=== PATIENT | female | born 2000 | race Two or more races ===

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

== ENCOUNTER → 2019-01-20 | Outpatient (CLI) | payer OTHER ==
--- NOTE | 2019-01-20 10:32 | XR ---
EXAMINATION TYPE: XR chest 2V DATE OF EXAM: 01/20/2019 COMPARISON: NONE HISTORY: Left-sided chest pain after lifting injury. Symptoms of disease per patient. TECHNIQUE: Frontal and lateral views of the chest are obtained. FINDINGS: There is no focal air space opacity, pleural effusion, or pneumothorax seen. The cardiac silhouette size is within normal limits. There is levoconvex scoliosis centered near thoracolumbar ju nction.. IMPRESSION: No suspicious acute pulmonary process.
== END | disposition home or self-care (01) ==
LOC: RADXRMAIN 10:09
PROVIDERS: ATTEND Emergency Medicine
DX: S23.9XXA Sprain of unspecified parts of thorax, initial encounter (principal); J45.909 Unspecified asthma, uncomplicated
CPT/HCPCS: 71046